=== PATIENT | female | born 1935 | race Caucasian/White ===

== ENCOUNTER → 2016-09-08 07:55 | Outpatient (CLI) | payer MEDICARE, OTHER ==
[2015-08-04 07:06] VITALS: BMI 26.6
[~2016-09-08 07:55] MED LIST: ALLERGY; ASPIRIN 81 MG E81 MG PO; CALTRATE 600 M600 M1 PO; FLAGYL500 MG PO; HYDROCODONE-APA1 TAB PO; LEVAQUIN500 MG PO; LEVAQUIN750 MG PO; LINZESS PO; LINZESS290 MCG PO; METAMUCIL FIB1 WAFER PO; MILK OF MAGNESI30 ML PO; MIRALAX17 GM PO; MULTI-DAY VITAM1 TAB PO; NEOMYCIN SULFA500 MG PO; NORCO 5/325 TAB1 TA1 PO; NORVASC5 MG PO; OSMOPREP TABLE32 TAB PO; POTASSIUM CHLO10 ME1 PO; PRAVACHOL40 MG PO; PRILOSEC10 MG PO; PRILOSEC20 MG PO; PROBIOTIC PO; ZESTRIL40 MG PO; ZOFRAN4 MG PO
== END | disposition home or self-care (01) ==
LOC: D.RAD 07:55
DX: R19.4 Change in bowel habit (principal); R10.9 Unspecified abdominal pain

== ENCOUNTER 2016-09-29 18:00 | Emergency (ER) | payer MEDICARE, OTHER ==
[2015-08-04 07:06] VITALS: BMI 26.6
[2016-09-29 18:46] LABS: APPEARANCE CLEAR (CLEAR); BILIRUBIN NEGATIVE (NEGATIVE); COLOR YELLOW (YELLOW); GLUCOSE NEGATIVE (NEGATIVE); KETONE NEGATIVE (NEGATIVE); LEUKOCYTE ESTERASE 1+ (NEGATIVE); NITRITE NEGATIVE (NEGATIVE); PROTEIN NEGATIVE (NEGATIVE); UROBILINOGEN NORMAL (NORMAL); WHITE CELLS - URINE 0-5 /hpf (0-5)
[2016-09-29 18:47] LABS: BACTERIA FEW /hpf (NONE SEEN); EPITHELIAL CELLS 0-5 /hpf (0-5); RED CELLS - URINE OCC /hpf (0-5)
[2016-09-29 18:58] LABS: BASOPHILS 0.9 % (0.0-2.0); EOSINOPHILS 1.6 % (0-7); HEMATOCRIT 37.5 % (36.0-48.0); HEMOGLOBIN 12.4 g/dL (12-16); MCH 30.9 pg (26.0-34.0); MCHC 33.1 g/dL (31.0-37.0); MCV 93.5 fL (80.0-100.0); MEAN PLATELET VOLUME 10.7 fL (7.4-10.4); MONOCYTES 10.2 % (2-11); NEUTROPHILS 74.3 % (40-80); PLATELET COUNT 206 10x3/uL (130-400); RBC 4.01 10x6/uL (4.00-5.40); RDW 12.7 % (11.5-14.5); WBC 3.2 10x3/uL (4.8-10.8)
[2016-09-29 19:16] LABS: ALBUMIN 4.3 g/dL (3.4-5.0); ALKALINE PHOSPHATASE 78 U/L (46-116); ALT (SGPT) 22 U/L (10-68); BILIRUBIN - TOTAL 0.18 mg/dL (0.2-1.3); CALC OSMOLALITY 278 mosm/kg (275-300); CALCIUM 9.4 mg/dL (8.5-10.1); CARBON DIOXIDE 29.7 mmol/L (21.0-32.0); CHLORIDE - SERUM 102 mmol/L (98-107); CREATININE - SERUM 0.8 mg/dL (0.6-1.3); GLUCOSE 113 mg/dL (74-106); POTASSIUM - SERUM 3.6 mmol/L (3.5-5.1); PROTEIN - SERUM 7.3 g/dL (6.4-8.2); SODIUM 140 mmol/L (136-145); UREA NITROGEN 10 mg/dL (7-18); eGFR NON AFRICAN AMERICAN 73 mL/min (90-120)
[2016-09-29 19:19] LABS: TROPONIN-I < 0.017 ng/mL (0.000-0.060)
== END 2016-09-29 20:38 | disposition home or self-care (01) ==
LOC: D.ER 18:00
PROVIDERS: Emergency Medicine
DX: R42 Dizziness and giddiness (principal); F17.200 Nicotine dependence, unspecified, uncomplicated

== ENCOUNTER → 2016-10-06 09:03 | Outpatient (CLI) | payer MEDICARE, OTHER ==
[2015-08-04 07:06] VITALS: BMI 26.6
== END | disposition home or self-care (01) ==
LOC: D.US 09:03
DX: R10.11 Right upper quadrant pain (principal)

== ENCOUNTER 2019-06-14 13:57 | Emergency (ER) | payer MEDICARE, OTHER ==
[~2019-06-14] VITALS: Ht 162.6 cm; Wt 68.2 kg
[2019-06-14 14:00] VITALS: Ht 162.6 cm; Wt 68.2 kg
[2019-06-14 16:30] VITALS: BP 179/89
== END 2019-06-14 16:30 | disposition home or self-care (01) ==
LOC: D.ER 13:57
DX: S00.03XA Contusion of scalp, initial encounter (principal); W19.XXXA Unspecified fall, initial encounter